=== PATIENT | male | born 1940 | race Caucasian/White ===

== ENCOUNTER 2018-04-27 14:23 | Emergency (ER) | payer MEDICARE ==
[2018-04-27 14:48] LABS: BASOPHILS % (AUTO) 0.8 % (0.0-5.0); EOSINOPHILS % (AUTO) 3.8 % (0.0-8.0); HEMATOCRIT 46.4 % (42-54); LYMPHOCYTES % (AUTO) 26.9 % (21.0-51.0); MEAN CORPUSCULAR HEMOGLOBIN 29.5 pg (27.0-33.0); MEAN CORPUSCULAR HGB CONC 34.1 g/dL (32.0-36.0); MEAN CORPUSCULAR VOLUME 86.4 fL (79-99); MONOCYTES % (AUTO) 7.2 % (3.0-13.0); NEUTROPHILS % (AUTO) 61.3 % (40.0-77.0); PLATELET COUNT (AUTO) 251 K/uL (130-400); RED BLOOD CELL COUNT(AUTO) 5.37 MIL/uL (4.50-6.20); RED CELL DISTRIBUTION WIDTH 13.2 % (11.0-15.5); WHITE BLOOD COUNT (AUTO) 9.2 K/uL (4.8-10.8)
[2018-04-27 15:08] LABS: CREATININE 1.1 mg/dL (0.5-1.5); POTASSIUM 4.4 mmol/L (3.5-5.1)
[2018-04-27 15:14] LABS: ALBUMIN 3.6 g/dL (3.5-5.0); BILIRUBIN,TOTAL 0.7 mg/dL (0.2-1.0); TOTAL PROTEIN, SERUM 7.9 g/dL (6.0-8.3)
[2018-04-27] MEDS ORDERED: SODIUM CHLORIDE 0.9% 1000ML 1,000 ML IV ONE (16:03)
[2018-04-27] MEDS ORDERED: ALBUTEROL SULFATE 0.083% 2.5 MG/3 ML INH IH ONE (16:07)
[2018-04-27 16:47] LABS: BILIRUBIN,URINE Negative (NEGATIVE); COLOR,URINE Yellow (YELLOW); GLUCOSE, URINE (UA) >=1000 mg/dL (NEGATIVE); KETONES,URINE Negative (NEGATIVE); LEUKOCYTE ESTERASE ,URINE Negative (NEGATIVE); NITRATE,URINE Negative (NEGATIVE); OCCULT BLOOD,URINE Negative (NEGATIVE); PROTEIN,URINE Negative (NEGATIVE)
[2018-04-27] MEDS ORDERED: CEFTRIAXONE SODIUM 1 GM ONE (16:48)
[2018-04-27 16:49] LABS: APPEARANCE,URINE Clear (CLEAR)
[2018-04-27] MEDS ORDERED: AZITHROMYCIN 250 MG TABLET PO ONE (16:49)
[2018-04-27] MEDS ORDERED: SODIUM CHLORIDE 0.9% 100 ML IV ONE (16:49)
[2018-04-27 16:56] LABS: BACTERIA,URINE None Seen /HPF (None Seen); RBC,URINE None Seen /HPF (0-1); WBC,URINE 0-1 /HPF (0-1); YEAST,URINE BUDDING Moderate /HPF (None Seen)
[2018-04-27 16:57] LABS: SQUAMOUS EPITHELIAL CELL,UR 0-2 /HPF (0-2)
== END 2018-04-27 17:44 | disposition home or self-care (01) ==
LOC: EDH 14:23
DX: J18.1 Lobar pneumonia, unspecified organism (principal); E78.5 Hyperlipidemia, unspecified; I10 Essential (primary) hypertension; Z87.891 Personal history of nicotine dependence
CPT/HCPCS: 36415; 71046; 80053; 81001; 85025; 87804 ×2; 94640; 96374; 99284; J0696; J7030